=== PATIENT | female | born 1955 | race Caucasian/White ===

== ENCOUNTER → 2016-05-09 | Outpatient (CLI) | payer OTHER ==
--- NOTE | 2016-05-09 09:53 | MA ---
Bilateral Digital Screening Mammography Clinical History: 60-year-old female whose mother had breast cancer at age 60. Patient presents today for routine annual mammographic screening. Technique: Digital CC and MLO views of each breast are compared with previous studies dated May 06, 2015, May 05, 2014, May 05, 2013, May 02, 2012, and April 20, 2011. This examin ation was processed by the [employer] computer-aided detection system. Breast Density: Type C. CAD Evaluation: Reviewed. Findings: There is a heterogeneously dense residual fibroglandular pattern, which limits mammographic detection. There is no convincing focal neodensity, or interim architectural change. There are no ramirez spicious clustered microcalcifications. Impression: Negative mammography. BI-RADS Category: 1. Recommendation: Routine annual mammographic screening. [facility] will send a result letter to the patient. Negative mammography should not preclude additional work-up of a clinically suspicious finding. The patient's information is entered into a reminder system with a target due date for her next mammo gram.
== END ==
LOC: CIMAGING 09:17
PROVIDERS: ATTEND Family Medicine
DX: Z12.31 Encounter for screening mammogram for malignant neoplasm of breast (principal); Z80.3 Family history of malignant neoplasm of breast
CPT/HCPCS: G0202

== ENCOUNTER → 2017-05-31 | Outpatient (CLI) | payer OTHER | LOC: CIMAGING 08:52 | PROVIDERS: ATTEND Family Medicine | DX: Z12.31 Encounter for screening mammogram for malignant neoplasm of breast (principal); Z80.3 Family history of malignant neoplasm of breast ==

== ENCOUNTER → 2018-06-03 | Outpatient (CLI) | payer OTHER | LOC: CIMAGING 08:17 | PROVIDERS: ATTEND Family Medicine | DX: Z12.31 Encounter for screening mammogram for malignant neoplasm of breast (principal); Z80.3 Family history of malignant neoplasm of breast ==